=== PATIENT | female | born 1995 | race African-American/Black ===

== ENCOUNTER 2019-01-18 08:43 | Emergency (ER) | payer SELFPAY ==
[~2019-01-18] VITALS: Ht 172.7 cm; Wt 83.9 kg
[~2019-01-18 08:43] MED LIST: NORPTMEDS CO
[2019-01-18 09:01] VITALS: BP 129/72
[2019-01-18] MEDS ORDERED: methylPREDNISolone SOD SUCC 125 MG/2 ML VL IM ONE (10:15)
[2019-01-18] MEDS ORDERED: cefTRIAXone SOD 1,000 MG VL IM ONE (10:15)
== END 2019-01-18 10:53 | disposition home or self-care (01) ==
LOC: ER 08:45
DX: J03.90 Acute tonsillitis, unspecified (principal)
CPT/HCPCS: 96372; 99283; J0696; J2930